=== PATIENT | female | born 1935 | race Caucasian/White ===

== ENCOUNTER → 2022-02-09 08:14 | Outpatient (CLI) | payer MEDICARE, SELFPAY ==
--- NOTE | ~2022-02-09 | CT_ITS ---
EXAMINATION: CT abdomen pelvis wo con DATE: 02/09/2022 08:48 INDICATION: Left lower quadrant abdominal pain TECHNIQUE: Computed tomography (CT) of the abdomen and pelvis was performed without intravenous contr ast. The dose-length product (DLP) was 871.00 mGy-cm. Automated exposure control and iterative recons truction technique were employed. COMPARISON: None FINDINGS: Minimal dependent atelectasis is present in the lung bases. There is mild bronchiectasis in the lower lobes. Cardiomegaly is noted. The liver, spleen, pancreas, and adrenal glands are normal. The gallbladder is surgically absent. Hemorrhagic cysts of the kidneys measure up to 1.7 cm on the le ft. There is calcified atherosclerosis of the aorta and many of the other arteries. No pathologically enlarged abdominal or pelvic lymph nodes are identified. There is no free intraperitoneal gas or missael dence of bowel obstruction. Colonic diverticulosis is present without evidence of diverticulitis. The re is severe lumbar spondylosis. IMPRESSION: 1. No CT correlate for the patient's symptoms. Diverticulosis without evidence of diverticulitis. Reviewed, dictated and finalized at location B.
== END ==
PROVIDERS: PCP Internal Medicine; Visit Provider Internal Medicine
DX: R10.32 Left lower quadrant pain (principal); K57.30 Diverticulosis of large intestine without perforation or abscess without bleeding
CPT/HCPCS: 74176